=== PATIENT | female | born 1955 | race Caucasian/White ===

== ENCOUNTER → 2018-12-05 | Outpatient (REF) | payer MEDICARE, MEDICAID ==
[~2018-12-05] MED LIST: ACTONEL35 MG OR; ACTOS30 MG OR; BUFFERIN LOW81 MG OR; COREG25 MG OR; FUROSEMIDE20 MG OR; KLOR-CON 1010 ME1 OR; LISINOPRIL10 MG OR; METFORMIN500 M1 OR; OS-CAL 500+D OR; PLAVIX75 MG OR; PRILOSEC20 MG OR; SIMVASTATIN20 MG OR
[2018-12-05 08:13] LABS: HEMATOCRIT 33.3 % (37.0-47.0); HEMOGLOBIN 10.9 g/dl (12.0-16.0); MEAN CELL VOLUME 89.5 fL CALC (80.0-100.0); MEAN CORPUSCULAR HGB 29.3 pG CALC (26.0-32.0); MEAN CORPUSCULAR HGB CONC 32.7 g/L CALC (32.0-36.0); RED BLOOD COUNT 3.72 mill/uL (4.20-5.60)
[2018-12-05 08:44] LABS: ALBUMIN 4.4 g/dL (3.2-5.0); BILIRUBIN, TOTAL 0.8 mg/dL (0.0-1.4); CHOLESTEROL HDL RATIO 2.8 (<4.4 (CALC)); CREATININE 1.2 mg/dL (0.5-1.0); TOTAL PROTEIN 7.4 g/dL (6.3-8.2)
== END | disposition home or self-care (01) ==
LOC: LAB 06:44
PROVIDERS: ATTEND Nurse Practitioner Adult Health
DX: D63.1 Anemia in chronic kidney disease (principal); E11.29 Type 2 diabetes mellitus with other diabetic kidney complication; I10 Essential (primary) hypertension

== ENCOUNTER 2021-03-18 08:17 | Day surgery (SDC) | payer MEDICARE, MEDICAID ==
[~2021-03-18] VITALS: Ht 154.9 cm; Wt 87.1 kg
[~2021-03-18 08:17] MED LIST changes: +B121000 MC1 PO; +CALC PO; +FOLIC ACID1 MG PO; +METFORMIN500 M2 PO; +PROLIA60 MG/ML SC; +SUPER B COMP PO; +VITAMIN D PO
[2021-03-18 11:55] VITALS: BP 139/63
== END 2021-03-18 11:40 | disposition home or self-care (01) ==
LOC: ENDO 08:17
PROVIDERS: ATTEND Surgery
PROC: 0DJD8ZZ Inspection of Lower Intestinal Tract, Via Natural or Artificial Opening Endoscopic (ICD-10-PCS; principal; 2021-03-18)
DX: Z12.11 Encounter for screening for malignant neoplasm of colon (principal); K57.30 Diverticulosis of large intestine without perforation or abscess without bleeding; K64.8 Other hemorrhoids; E11.9 Type 2 diabetes mellitus without complications; I10 Essential (primary) hypertension; Z95.5 Presence of coronary angioplasty implant and graft; Z79.84 Long term (current) use of oral hypoglycemic drugs